=== PATIENT | female | born 1975 | race African-American/Black ===

== ENCOUNTER 2017-01-15 12:08 | Emergency (ER) | payer BC ==
[~2017-01-15] VITALS: Ht 157.5 cm; Wt 96.6 kg
[2017-01-15 12:35] VITALS: BP 148/95
== END 2017-01-15 14:18 | disposition home or self-care (01) ==
LOC: ER 12:15
DX: J20.9 Acute bronchitis, unspecified (principal); I88.9 Nonspecific lymphadenitis, unspecified

== ENCOUNTER 2018-09-02 09:22 | Emergency (ER) | payer BC ==
[~2018-09-02] VITALS: Ht 162.6 cm; Wt 78.9 kg
[2018-09-02 10:46] LABS: Basophils # (auto) 0.1 uL; Basophils % (auto) 1.1 % (0.0-2.0); Eosinophils # (auto) 0.1 uL; Eosinophils % (auto) 2.9 % (0.0-7.0); Hematocrit 38.7 % (36.0-46.0); Hemoglobin 12.8 g/dL (12.2-16.2); Lymphocytes # (auto) 2.4 uL; Lymphocytes % (auto) 47.8 % (10.0-50.0); Mean Corpuscular Hemoglobin 29.3 pg (28.0-32.0); Mean Corpuscular Volume 88.6 fL (80.0-100.0); Monocytes # (auto) 0.5 uL; Monocytes % (auto) 10.1 % (0.0-12.0); Neutrophils # (auto) 1.9 uL; Neutrophils % (auto) 38.1 % (37.0-80.0); Nucleated Red Blood Cells % 0.2 %; Platelet Count (auto) 284 10^3/uL (140-450); Red Blood Cells 4.37 10^6/uL (4.0-5.20); Red Cell Distribution Width 16.1 % (11.8-14.3)
[2018-09-02 10:59] LABS: Alanine Aminotransferase 26 U/L (13-56); Anion Gap 2 (5-15); Aspartate Aminotransferase 14 U/L (15-37); Blood Urea Nitrogen 15 mg/dL (7-18); Calcium 8.9 mg/dL (8.5-10.1); Carbon Dioxide 29 mmol/L (21-32); Chloride 107 mmol/L (98-107); Glucose 92 mg/dL (74-106); Potassium 4.4 mmol/L (3.5-5.1); Sodium 138 mmol/L (136-145)
[2018-09-02 11:04] LABS: Alkaline Phosphatase 82 U/L (45-117); BUN/Creatinine Ratio 18.5; Bilirubin, Total 1.1 mg/dL (0.2-1.0); GFR African American 100 mL/min; GFR Non-African American 83 mL/min; Total Protein 7.8 g/dL (6.4-8.2)
[2018-09-02] MEDS ORDERED: SODIUM CHLORIDE 0.9% 1,000 ML IV ONE (12:53)
[2018-09-02] MEDS ORDERED: METOCLOPRAMIDE HCL 5MG/ml INJ 2ml VIAL IV ONE (13:00)
[2018-09-02] MEDS ORDERED: KETOROLAC TROMETH 30 MG/ML 1ML VIAL IV ONE (13:00)
[2018-09-02 14:19] VITALS: BP 95/56
== END 2018-09-02 15:43 | disposition home or self-care (01) ==
LOC: ER 09:22
DX: R07.89 Other chest pain (principal); N39.0 Urinary tract infection, site not specified; Z98.84 Bariatric surgery status
CPT/HCPCS: 36415; 71046; 80053; 81002; 81025; 84484; 85025; 93005; 96374; 96375; 99284; J1885; J2765; 96361